=== PATIENT | female | born 2000 | race Two or more races ===

== ENCOUNTER 2019-12-02 14:29 | Emergency (ER) | payer SELFPAY ==
[~2019-12-02] VITALS: Ht 175.3 cm; Wt 70.0 kg
[2019-12-02 17:50] VITALS: BP 128/64
[2019-12-02 18:16] LABS: BILIRUBIN,URINE NEGATIVE (NEG); CLARITY,URINE CLEAR; COLOR,URINE YELLOW; NITRITE,URINE NEGATIVE (NEG); PROTEIN,URINE NEGATIVE (NEG-TRACE); UROBILINOGEN,URINE 0.2 mg/dL (0.2 mg/dL)
[2019-12-02 18:25] LABS: BACTERIA,URINE 0 /HPF (0-FEW); RBC,URINE 0 /HPF (0-2); SQUAMOUS EPITHELIAL CELL,UR OCC /LPF; WBC,URINE 0 /HPF (0-4)
[2019-12-02] MEDS ORDERED: AZITHROMYCIN 250 MG TABLET. PO ONE (18:30)
[2019-12-02] MEDS ORDERED: cefTRIAXone IM 250 MG VIAL IM ONE (18:30)
[2019-12-02] MEDS ORDERED: METR500T PO (18:59)
--- NOTE | 2019-12-02 19:00 | PHYS DOC ---
Past Medical History Past Medical History: No Pertinent History Past Surgical History: No Surgical History Smoking Status: Never Smoker Alcohol Use: None General Adult EDM: Chief Complaint: SEXUALLY TRANSMITTED DISEASE HPI: HPI: Patient is a 19 year old female who presents to the emergency department with request to be tested and treated for sexually transmitted infections. She states that her ex-boyfriend contacted her 3 days ago and told her that he had cheated on her while they were together and that he was just diagnosed with a sexually transmitted infection. She denies any irregular vaginal discharge, vaginal odor, pelvic pain, vaginal bleeding, back pain, dysuria, hematuria, or increased urinary frequency. She currently denies any pain. Review of Systems: Review of Systems: Constitutional: Denies fever or chills. [] GI: Denies abdominal pain, nausea, vomiting, or diarrhea. [] : Denies dysuria; see HPI. [] Musculoskeletal: Denies back pain Integument: Denies rash. [] Neurologic: Denies headache Psychiatric: Denies depression or anxiety. [] Heart Score: Risk Factors: Risk Factors: DM, Current or recent (<one month) smoker, HTN, HLP, family history of CAD, obesity. Risk Scores: Score 0 - 3: 2.5% MACE over next 6 weeks - Discharge Home Score 4 - 6: 20.3% MACE over next 6 weeks - Admit for Clinical Observation Score 7 - 10: 72.7% MACE over next 6 weeks - Early Invasive Strategies Current Medications: Current Medications Medications (Trade) Dose Ordered Sig/Marco A Start Time Stop Time Status Last Admin Dose Admin Azithromycin (Zithromax) 1,000 mg 1X ONCE 12/02/19 18:30 12/02/19 18:31 DC 12/02/19 18:37 1,000 MG Ceftriaxone Sodium (Rocephin Im) 250 mg 1X ONCE 12/02/19 18:30 12/02/19 18:31 DC 12/02/19 18:37 250 MG Allergies: Allergies: Allergies Coded Allergies Type Severity Reaction Last Updated Verified No Known Drug Allergies 12/02/19 No Physical Exam: PE: Constitutional: Well developed, well nourished, no acute distress, non-toxic appearance. HENT: Normocephalic, atraumatic, bilateral external ears normal, nose normal. Eyes: PERRLA, EOMI, conjunctiva normal, no discharge. Neck: Normal range of motion, no stridor. Cardiovascular: Heart rate regular rhythm Lungs & Thorax: Respirations even and unlabored, no retractions, no respiratory distress Pelvic Exam: Signal Tower Operator present Letty [place]LE Abdomen: Nontender, soft External Genitalia: Normal Skin Speculum: Normal vaginal mucosa, bloody cervical discharge Bimanual: No adnexal masses or tenderness, No CMT Skin: Warm, dry, no erythema, no rash. Extremities: No cyanosis, ROM intact, no edema. Neurologic: Alert and oriented X 3, no focal deficits noted. Psychologic: Affect normal, judgement normal, mood normal. Current Patient Data: Labs: Laboratory Tests Test 12/02/19 18:00 Urine Collection Type Unknown Urine Color Yellow Urine Clarity Clear Urine pH 6.0 (<5.0-8.0) Urine Specific [place] <=1.005 (1.000-1.030) Urine Protein Negative mg/dL (NEG-TRACE) Urine Glucose (UA) Negative mg/dL (NEG) Urine Ketones (Stick) Negative mg/dL (NEG) Urine Blood Negative (NEG) Urine Nitrite Negative (NEG) Urine Bilirubin Negative (NEG) Urine Urobilinogen Dipstick 0.2 mg/dL (0.2 mg/dL) Urine Leukocyte Esterase Negative (NEG) Urine RBC 0 /HPF (0-2) Urine WBC 0 /HPF (0-4) Urine Squamous Epithelial Cells Occ /LPF Urine Bacteria 0 /HPF (0-FEW) POC Urine HCG, Qualitative Hcg negative (Negative) Microbiology 12/02/19 Wet Prep - Final, Complete Vital Signs: Vital Signs Date Time Temp Pulse Resp B/P (MAP) Pulse Ox O2 Delivery O2 Flow Rate FiO2 12/02/19 17:50 98.6 72 16 128/64 (85) 99 Room Air 98.6 EKG: EKG: [] Radiology/Procedures: Radiology/Procedures: [] Course & Med Decision Making: Course & Med Decision Making Pertinent Labs and Imaging studies reviewed. (See chart for details) 19-year-old female presents to the emergency department with concerns for sexually transmitted infection. Pelvic exam was done with a wet mount and gonorrhea and Chlamydia testing. Patient was treated prophylactically with 250 mg of IM Rocephin, and 1 g of PO Zithromax. Patient was instructed to avoid having intercourse until the results of gonorrhea and chlamydia testing are available, patient was notified that these results would not be available for 48 hours. If one or both of these tests is positive, patient needs to refrain from intercourse for approximately 1 week following the treatment of any current partners. Wet mount was positive for bacterial vaginosis. A prescription was written for Flagyl 500 mg p.o. twice daily x7 days. Patient verbalized an understanding of home care, medications, follow-up, and return to ED instructions and was in agreement with the plan of care. [] Dragon Disclaimer: Dragon Disclaimer: This electronic medical record was generated, in whole or in part, using a voice recognition dictation system. Departure Departure Impression: Primary Impression: Bacterial vaginosis Additional Impression: Contact with and (suspected) exposure to infections with a predominantly sexual mode of transmission Disposition: 01 HOME, SELF-CARE Condition: STABLE Referrals: NO PCP (PCP) Patient Instructions: Bacterial Vaginosis, [id number], Sexually Transmitted Disease, [id number] Additional Instructions: Fill the prescription and use as directed. Recommend that you go to your local health department for comprehensive sexually transmitted disease testing. You have been treated for a suspected gonorrhea and chlamydia. Avoid having intercourse until the results of gonorrhea and chlamydia testing are available, these results will not be available for 48 hours. If one or both of these tests is positive, you need to refrain from intercourse for approximately 1 week following the treatment of any current partners. Follow-up with your primary care doctor if symptoms persist, return to ER symptoms worsen. Scripts Metronidazole (FLAGYL) 500 Mg Tablet 1 TAB PO BID, #14 TAB 0 Refills Prov: ESAU JAMES WRAP YARN SORTER 12/02/19 Justicifation of Admission Dx: Justifications for Admission: Justification of Admission Dx: N/A ESAU JAMES WRAP YARN SORTER Dec 02, 2019 19:00
[2019-12-03 20:09] LABS: GC PROBE Negative (Negative)
== END 2019-12-02 19:21 | disposition home or self-care (01) ==
LOC: ER 14:29
DX: N76.0 Acute vaginitis (principal); B96.89 Other specified bacterial agents as the cause of diseases classified elsewhere; Z20.2 Contact with and (suspected) exposure to infections with a predominantly sexual mode of transmission
CPT/HCPCS: 81001; 81025; 87491; 87591; 96372; 99284; J0696; Q0111